=== PATIENT | male | born 1985 | race Caucasian/White ===

== ENCOUNTER 2018-08-10 04:20 | Emergency (ER) | payer BC, OTHER ==
[~2018-08-10] VITALS: Ht 157.5 cm; Wt 67.4 kg
[2018-08-10 04:25] VITALS: BP 140/81; PULSE 89; RESP 18; Ht 157.5 cm; Wt 67.4 kg
[2018-08-10] MEDS ORDERED: KETOROLAC 30 MG INJ IM STA (04:52)
[2018-08-10] MEDS ORDERED: HYDROCODONE/APAP (5/325) TAB PO ONE (05:00)
--- NOTE | 2018-08-10 05:12 | ERD ---
ER Documentation Chief Complaint Chief Complaint PT C/O R SHOULDER PAIN RADIATES TO BACK.R THUMB MIDDLE FINGER NUMBNESS HPI This is a 33-year-old male presents emergency department with complaints of right shoulder pain that radiates to right thumb, right hand numbness. Pain was described as achy especially on range of motion. Also added that the right shoulder is painful when he is lying on his right side. Denies headache, head injury, loss of consciousness, neck pain, neck stiffness, difficulty swallowing, difficulty breathing lying flat, injury, loss of function of his right hand, chest pain, shortness of breath, rashes, lesions, numbness or tingling sensation, fever, chills, seizures. Denies medical problems. Denies prescription medications at home. ROS All systems reviewed and are negative except as per history of present illness. Medications Home Meds Active Scripts Metaxalone* (Skelaxin*) 800 Mg Tablet, 800 MG PO TID PRN for MUSCLE SPASMS, #20 TAB Prov:PASILABAN,CESARAR F 08/10/18 Ibuprofen* (Ibuprofen*) 800 Mg Tablet, 800 MG PO Q8 PRN for PAIN LEVEL 1-5, #20 TAB Prov:PASILABAN,KLAR F 08/10/18 Allergies Allergies: Coded Allergies: No Known Allergy (Unverified , 06/08/14) PMhx/Soc History of Surgery: No Anesthesia Reaction: No Hx Neurological Disorder: No Hx Respiratory Disorders: No Hx Cardiac Disorders: No Hx Psychiatric Problems: No Hx Miscellaneous Medical Probl: No Hx Alcohol Use: No Hx Substance Use: No Hx Tobacco Use: No Physical Exam Vitals Vital Signs Date Temp Pulse Resp B/P (MAP) Pulse Ox O2 O2 Flow FiO2 Time Delivery Rate 08/10/18 98.4 89 18 140/81 100 04:25 (100) Physical Exam Const: No acute distress Head: Atraumatic Eyes: Normal Conjunctiva ENT: Normal External Ears, Nose and Mouth. Neck: Full range of motion. No meningismus. Resp: Clear to auscultation bilaterally Cardio: Regular rate and rhythm, no murmurs Abd: Soft, non tender, non distended. Normal bowel sounds Skin: No petechiae or rashes Back: No midline or flank tenderness. C-spine is in midline with no bulging/deformity but has pain to range of motion. Ext: No cyanosis, or edema. Right shoulder: No obvious deformity. It skin is not warm to touch. No discoloration. Pain to range of motion. Right humerus/elbow/forearm are unremarkable. Positive Phalen test to right hand. Left upper extremity is unremarkable. No neurovascular deficits. Ambulatory with steady gait. Neur: Awake and alert. No neurological deficits. Psych: Normal Mood and Affect Results 24 hrs Current Medications Medications Dose Sig/Domenica Start Time Status Last (Trade) Ordered Route PRN Stop Time Admin Dose Reason Admin Ketorolac 30 mg ONCE STAT 08/10/18 DC 08/10/18 Tromethamine IM 04:52 05:09 (Toradol) 08/10/18 04:56 1 tab ONCE ONCE 08/10/18 DC 08/10/18 Acetaminophen PO 05:00 05:09 / 08/10/18 05:01 Hydrocodone Bitart ([place] (5/325)) 10 mg ONCE ONCE 08/10/18 DC 08/10/18 Dexamethasone IM 05:30 05:09 (Decadron) 08/10/18 05:31 Procedures/MDM Diagnostic tests: I ordered diagnostic imaging/x-rays but patient is strongly refusing. Treatment: Dexamethasone IM. Toradol IM. [place] p.o. offered Velcro splint and arm sling. Re-evaluation: Denies pain. Has good and full function of his right hand. Differential diagnosis I have low suspicion for septic joint, fracture, septic bursitis. Final diagnosis: Cervical radiculopathy. Carpal tunnel syndrome. Prescription: Skelaxin. Motrin. Follow-up with PCP in the next 24-48 hours. PCP to do an MRI in the next few days or weeks if symptoms persist. Come back here in the emergency department for any new symptoms or any worsening symptoms. All questions and concerns were answered. Patient and family members verbalized understanding and agreed with plan of care. Hemodynamically stable on discharge. Departure Diagnosis: Primary Impression: Cervical radiculopathy Additional Impressions: Shoulder pain Carpal tunnel syndrome Condition: Stable Additional Instructions: Follow-up with PCP in the next 24-48 hours. PCP to do an MRI in the next few days or weeks if symptoms persist. Come back here in the emergency department for any new symptoms or any worsening symptoms. MEREDITH ROBERSON Aug 10, 2018 05:12
[2018-08-10] MEDS ORDERED: IBUP-1544 PO (05:13)
[2018-08-10] MEDS ORDERED: META-121 PO (05:14)
[2018-08-10] MEDS ORDERED: DEXAMETHASONE 10 MG/ML 1 ML INJ IM ONE (05:30)
== END 2018-08-10 05:57 | disposition home or self-care (01) ==
LOC: FTE 04:20
DX: M54.12 Radiculopathy, cervical region (principal)
CPT/HCPCS: 29125; 96372; J1100; J1885; Z7502; Z7610